=== PATIENT | male | born 1990 | race Caucasian/White ===

== ENCOUNTER 2018-03-27 16:20 | Emergency (ER) | payer SELFPAY ==
[2018-03-27 16:21] VITALS: BP 130/73; PULSE 94; RESP 16; TEMP 37.1; O2SAT 98; BMI 20.6
--- NOTE | 2018-03-27 16:30 | RAD_ITS ---
STUDY: X-RAY - LEFT FOOT CLINICAL: Male, 27 years old. Left third digit pain. TECHNIQUE: 3 view(s) of the foot. COMPARISON: Right foot dated April 19, 2017 FINDINGS: Normal talus, calcaneus, and tarsal bones. Normal visualized subtalar, talonavicular, calcaneocuboid, tarsal and tarsometatarsal articulations. Normal metatarsi. Normal metatarsophalangeal joint of the great toe. Normal interphalangeal joint of the great toe. Normal phalanges of the great toe. Normal second through fifth metatarsophalangeal joints. Normal interphalangeal joints and phalanges of the lesser toes. The soft tissue structures are unremarkable. RAD/Foot min 3 Views IMPRESSION: No acute osseous injury. Electronically Signed: Tracey Leavitt MD at 16:48 EDT Tel , Service support ,
--- NOTE | 2018-03-27 18:14 | ED.VISSUMM ---
- ER Visit Summary Date of Service: 03/27/18 Chief Complaint: Left third toe pain History of Present Illness: The patient is a [address] Pedersen. He reports that yesterday he was running through the backyard and stubbed his left third toe on a stick that they used to attach the dog chain. Reports she has a sharp pain is now 10 with walking 7 out of 10 at rest. He denies any other injuries or complaints. Physical Examination: Vitals: Stable. Afebrile. General: Well-nourished and well-developed. Head: Normocephalic atraumatic. Neck: Supple, no lymphadenopathy. No JVD. Nontender. Cardiovascular: Regular rate and rhythm. No murmurs. Respiratory: No respiratory distress. Clear to auscultation bilaterally. Abdominal: Soft, nontender, nondistended, normal bowel sounds. No guarding, rebound, or peritoneal signs. Back: Nontender. Extremities: Contusion and moderate tenderness palpation to the left third toe. There is no pain over the remainder of his foot. Skin: Normal color, no rash. Neurologic: Alert and oriented ?3. Cranial nerves II through XII are intact. Normal strength and sensation. Psych: Normal affect. Test Results: X-ray is negative. Emergency Department Course and Treatment: Patient was treated ibuprofen is resting comfortably. Treatment Plan: Patient will be discharged on ibuprofen and instructed to follow-up his primary care physician 1 week if not improving. Return to the emergency department for any worsening symptoms. Disposition: To home in improved and stable condition. Impression: 1. Contusion left third toe. This note was generated with [employer] dictation software. It may contain incorrect words, spelling, and punctuation that were not noted in review of the chart prior to signing ED Disposition - Plan for ED Patient: Disposition: Home or Assisted Living Chief Complaint: Lower Extremity Injury Instructions: ED Contusion Lower Ext Referrals: Louise Schwarz [NON-STAFF] - 1 Week if not improving
--- NOTE | 2018-03-27 18:25 | ED.DCSUM_ITS ---
- ER Visit Summary Date of Service: 03/27/18 Chief Complaint: Left third toe pain History of Present Illness: The patient is a [address] Pedersen. He reports that yesterday he was running through the backyard and stubbed his left third toe on a stick that they used to attach the dog chain. Reports she has a sharp pain is now 10 with walking 7 out of 10 at rest. He denies any other injuries or complaints. Physical Examination: Vitals: Stable. Afebrile. General: Well-nourished and well-developed. Head: Normocephalic atraumatic. Neck: Supple, no lymphadenopathy. No JVD. Nontender. Cardiovascular: Regular rate and rhythm. No murmurs. Respiratory: No respiratory distress. Clear to auscultation bilaterally. Abdominal: Soft, nontender, nondistended, normal bowel sounds. No guarding, rebound, or peritoneal signs. Back: Nontender. Extremities: Contusion and moderate tenderness palpation to the left third toe. There is no pain over the remainder of his foot. Skin: Normal color, no rash. Neurologic: Alert and oriented ?3. Cranial nerves II through XII are intact. Normal strength and sensation. Psych: Normal affect. Test Results: X-ray is negative. Emergency Department Course and Treatment: Patient was treated ibuprofen is resting comfortably. Treatment Plan: Patient will be discharged on ibuprofen and instructed to follow -up his primary care physician 1 week if not improving. Return to the emergency department for any worsening symptoms. Disposition: To home in improved and stable condition. Impression: 1. Contusion left third toe. This note was generated with [employer] dictation software. It may contain incorrect words, spelling, and punctuation that were not noted in review of the chart prior to signing ED Disposition - Plan for ED Patient: Disposition: Home or Assisted Living Chief Complaint: Lower Extremity Injury Instructions: ED Contusion Lower Ext Referrals: Louise Schwarz [NON-STAFF] - 1 Week if not improving
[2018-03-27] MEDS: Ibuprofen 600 MG Tablet PO (18:31)
== END 2018-03-27 18:49 | disposition home or self-care (01) ==
LOC: ED 18:27
PROVIDERS: Emergency Provider Emergency Medicine
DX: S90.122A Contusion of left lesser toe(s) without damage to nail, initial encounter (principal); W22.8XXA Striking against or struck by other objects, initial encounter; Y93.02 Activity, running; Y92.007 Garden or yard of unspecified non-institutional (private) residence as the place of occurrence of the external cause; Z72.0 Tobacco use
CPT/HCPCS: 73630; 99282

== ENCOUNTER 2019-04-02 12:38 | Emergency (ER) | payer MEDICAID, SELFPAY ==
[2019-04-02 12:38] VITALS: BP 110/88; PULSE 88; RESP 16; TEMP 37.1; O2SAT 100; BMI 25.8
--- NOTE | 2019-04-02 12:50 | ED.VIS.BACK ---
History of Present Illness Chief Complaint: Back Narrative: Patient presenting for evaluation secondary to back pain. Patient reports that 2 days ago he was helping his father move a gun safe. Patient states that he felt fine after doing that, but the following day he had a gradual onset of lower back pain. He reports that this is gradually gotten worse to the point where he now has some difficulty with changing position, and walking. It is a continuous sharp pain in his lower back. No radiation to the legs. No bowel or bladder incontinence. No fevers. No recent history of surgeries or injections. 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 Review of systems otherwise negative. Past Medical History - Allergies and Home Meds Allergies/Adverse Reactions: Allergies No Known Allergies Allergy (Verified 04/02/19 12:41) Primary Care Physician: Care Physician,No Primary [Primary Care Provider] - Smoking Status: Never smoker Review of Systems General: Denies: Fever, Sweats, Weight loss Musculoskeletal: Reports: Back pain Neurological: Denies: Weakness, Parasthesia Physical Exam Vital Signs/Narrative: Vital Signs Temp Pulse Resp BP Pulse Ox 04/02/19 12:38 98.8 F 88 16 110/88 H 100 General: Well nourished, Well developed Head: Normocephalic, Atraumatic Eyes: Perrl, EOMI ENT: Moist mucous membranes, No rhinorrhea Neck: Supple, Nontender Cardiovascular: Regular rate, Regular rhythm, No murmurs Respiratory: No distress, CTA bilaterally, Chest nontender Abdomen: Soft, Nontender, Nondistended, Normal bowel sounds. Negative for: Pulsatile mass Back: Normal Inspection, - - Diffuse paraspinal tenderness in the lumbar spine. Extremeties: Nontender, No edema Skin: Normal color, No rash Neuro: Alert, Oriented, Normal Strength, Normal Sensation, Normal DTR, Normal Gait, - - 5 out of 5 strength at the hip knee ankle and foot. Normal sensation over all dermatomes. 3+ patellar reflexes bilaterally, 2+ Achilles, negative clonus. Psychological: Normal affect Diagnostic/Tx/Re-eval - Medical Decision Making Patient presented with a gradual onset of back pain after heavy lifting. This seems consistent with a lumbar strain. Patient was recommended stretching exercises and will be discharged with a course of Naprosyn and Flexeril. Patient will be provided with a work excuse. Disposition: Home ED Disposition - Plan for ED Patient: Disposition: Home or Assisted Living Diagnosis: Lumbar strain Instructions: Back Sprain/Strain Prescriptions: cycloBENZAPRine HCl [Flexeril] 10 mg PO TID PRN #20 tab PRN Reason: Muscle Spasm Prescription Printed Naproxen [Naprosyn] 500 mg PO BID PRN #20 tab Prescription Printed Additional Instructions: Followup with your PCP as needed.
== END 2019-04-02 13:19 | disposition home or self-care (01) ==
PROVIDERS: Emergency Provider Emergency Medicine
DX: S39.012A Strain of muscle, fascia and tendon of lower back, initial encounter (principal); X50.0XXA Overexertion from strenuous movement or load, initial encounter; Y93.89 Activity, other specified; Y92.9 Unspecified place or not applicable
CPT/HCPCS: 99282